=== PATIENT | female | born 1945 | race Caucasian/White ===

== ENCOUNTER 2016-10-10 12:05 | Emergency (ER) | payer OTHER ==
[~2016-10-10] VITALS: Ht 152.4 cm; Wt 89.8 kg
[~2016-10-10 12:05] MED LIST: ADVAIR 250/501 EA INH; ALBUTEROL0.09 MG/A2 INH; ATOXIMETIN-B1 CAP PO; BUSPIRONE15 MG PO; CALCI PO; CITALOPRAM20 MG PO; CLARITIN10 MG PO; COREG12.5 MG PO; ECOTRIN81 MG PO; GELATIN PO; HYDRALAZINE HCL25 MG PO; K-99595 MG PO; LEVAQUIN750 MG PO; LOPRESSOR25 MG PO; MAREPA1200 MG PO; METOPROLOL SR25 MG PO; NAPROSYN375 MG PO; PREDNISONE10 MG PO; PREDNISONE20 MG PO; PRILOSEC20 MG PO; RANITIDINE150 MG PO; SYNTHROID,LEVO50 MCG PO; ZESTRIL,PRINIVI20 MG PO; ZOCOR40 MG PO
[2016-10-10] MEDS ORDERED: FLUTICASON0.05 MG/AC NAS (12:20)
[2016-10-10] MEDS ORDERED: LISINOPRIL-HYDR1 TA1 PO (12:21)
[2016-10-10 13:54] VITALS: BP 190/88
== END 2016-10-10 14:26 | disposition home or self-care (01) ==
LOC: ED 12:05
DX: I10 Essential (primary) hypertension (principal); F17.200 Nicotine dependence, unspecified, uncomplicated; Z90.49 Acquired absence of other specified parts of digestive tract; Z79.82 Long term (current) use of aspirin; Z79.899 Other long term (current) drug therapy